=== PATIENT | female | born 1970 | race Caucasian/White ===

== ENCOUNTER 2023-01-23 23:12 | Emergency (ER) | payer MEDICAID ==
[~2023-01-23] VITALS: Ht 162.6 cm; Wt 83.1 kg
[2023-01-23 23:54] VITALS: TEMP 97.8; O2SAT 98
[2023-01-24] MEDS ORDERED: CLIN-194 MT (03:43)
[2023-01-24] MEDS ORDERED: IBUP-2029 MT (03:43)
[2023-01-24] MEDS ORDERED: CLINDAMYCIN HCL 150MG CAPSULE PO ONE (03:45)
[2023-01-24] MEDS ORDERED: IBUPROFEN 600MG TABLET PO ONE (03:45)
[2023-01-24 05:08] VITALS: BP 113/75; PULSE 78; RESP 16
== END 2023-01-24 05:17 | disposition home or self-care (01) ==
LOC: ER 23:12
DX: K04.7 Periapical abscess without sinus (principal); Z85.9 Personal history of malignant neoplasm, unspecified; Z88.0 Allergy status to penicillin
CPT/HCPCS: 99283

== ENCOUNTER 2024-01-29 06:40 | Emergency (ER) | payer MEDICAID ==
[~2024-01-29] VITALS: Ht 167.6 cm; Wt 70.0 kg
[~2024-01-29 06:40] MED LIST: CLIN-194 MT; IBUP-2029 MT
[2024-01-29 06:59] VITALS: BP 104/74; PULSE 108; RESP 16; TEMP 98; O2SAT 99
== END 2024-01-29 07:19 | disposition left against medical advice (07) ==
LOC: ER 06:40
DX: Z00.00 Encounter for general adult medical examination without abnormal findings (principal); Z53.21 Procedure and treatment not carried out due to patient leaving prior to being seen by health care provider

== ENCOUNTER 2024-10-13 22:55 | Emergency (ER) | payer MEDICAID ==
[~2024-10-13] VITALS: Ht 167.6 cm; Wt 167.6 kg
[2024-10-13 23:01] VITALS: O2SAT 98
[2024-10-13 23:57] LABS: BASOPHILS % 0.4 % (0.0-2.0); HEMOGLOBIN. 13.3 g/dL (12.0-16.0); LYMPHOCYTES % 46.5 % (20.0-50.0); MEAN CORPUSCULAR HEMOGLOBIN 30.7 pg (28.0-32.0); MEAN CORPUSCULAR HGB CONC 33.2 g/dL (31.0-37.0); MEAN CORPUSCULAR VOLUME 92.4 fL (81.0-99.0); MEAN PLATELET VOLUME 7.7 fl (7.4-10.4); MONOCYTES % 8.3 % (2.0-8.0); NEUTROPHILS % 43.8 % (40.0-76.0); PLATELET 220 x1000/uL (130-400); RED BLOOD CELL COUNT 4.33 mill/uL (4.2-5.4); RED CELL DISTRIBUTION WIDTH 12.8 % (11.6-14.6); WHITE BLOOD COUNT 6.1 x1000/uL (4.5-11.0)
[2024-10-14 00:03] LABS: CHLORIDE 104 mEq/L (98-107); POTASSIUM 3.3 mEq/L (3.5-5.1); SODIUM 140 mEq/L (136-145)
[2024-10-14 00:04] LABS: CARBON DIOXIDE 28 mEq/L (21-32)
[2024-10-14 00:05] LABS: CALCIUM 10.2 mg/dL (8.7-10.4)
[2024-10-14 00:07] LABS: HCG SCREEN NEGATIVE
[2024-10-14 00:09] LABS: CREATININE 0.8 mg/dL (0.6-1.0); ETHANOL BLOOD < 10 mg/dL (<10); GLUCOSE 118 mg/dL (70-105); UREA NITROGEN BLOOD 11 mg/dL (9-23)
[2024-10-14 00:11] LABS: ACETAMINOPHEN < 2 ug/mL (10-30); ALANINE AMINOTRANSFERASE 15 IU/L (10-49); ALBUMIN 4.6 g/dL (3.2-4.8); ASPARTATE AMINOTRANSFERASE 17 IU/L (<34); BILIRUBIN DIRECT < 0.1 mg/dL (<=3.0); BILIRUBIN TOTAL 0.5 mg/dL (0.1-1.0); PROTEIN TOTAL 7.1 g/dL (6.0-8.3)
[2024-10-14 03:54] LABS: CLARITY URINE CLEAR (CLEAR); COLOR URINE YELLOW (YELLOW); GLUCOSE URINE NEGATIVE (NEGATIVE); KETONES URINE NEGATIVE (NEGATIVE); LEUKOCYTE ESTERASE URINE NEGATIVE (NEGATIVE); NITRITE URINE NEGATIVE (NEGATIVE); OCCULT BLOOD URINE NEGATIVE (NEGATIVE); PH URINE 5.5 (4.5-8.0); PROTEIN URINE NEGATIVE (NEGATIVE); SPECIFIC GRAVITY URINE 1.015 (1.005-1.030); UROBILINOGEN URINE 0.2 E.U./dL (0.2-1.0)
[2024-10-14 04:03] LABS: *AMPHETAMINES SCREEN URINE PRESUMPTIVE POSITIVE (NEGATIVE); *BARBITURATES SCREEN URINE NEGATIVE (NEGATIVE); *BENZODIAZEPINES SCREEN URINE NEGATIVE (NEGATIVE); *COCAINE SCREEN URINE NEGATIVE (NEGATIVE); CANNABINOID URINE SCREEN NEGATIVE (NEGATIVE); ECSTASY MDMA SCREEN URINE NEGATIVE (NEGATIVE); METHADONE URINE SCREEN NEGATIVE (NEGATIVE); OPIATES URINE SCREEN NEGATIVE (NEGATIVE); PHENCYCLIDINE URINE SCREEN PRESUMTIVE POSITIVE (NEGATIVE)
[2024-10-14] MEDS ORDERED: METFORMIN HCL 500MG TABLET PO STA (05:36)
[2024-10-14] MEDS: POTASSIUM CHLORIDE 20MEQ/PACKET PO SCH (06:43)
[2024-10-14] MEDS: METFORMIN HCL 500MG TABLET PO SCH (08:00)
[2024-10-14 10:00] VITALS: BP 104/75; PULSE 72; RESP 16; TEMP 37.2; O2SAT 100
[2024-10-14] MEDS ORDERED: HYDROXYZINE 25MG TABLET PO PRN (12:00)
[2024-10-14] MEDS: SERTRALINE HCL 25MG TABLET PO SCH (13:00)
== END 2024-10-14 16:20 ==
LOC: ER 22:55
DX: R45.851 Suicidal ideations (principal); Z59.00 Homelessness unspecified; Z79.84 Long term (current) use of oral hypoglycemic drugs; Z85.43 Personal history of malignant neoplasm of ovary; Z88.0 Allergy status to penicillin; Z79.899 Other long term (current) drug therapy; Z20.822 Contact with and (suspected) exposure to COVID-19
CPT/HCPCS: 80076; 80048; 80307; 80329; 80320; 84703; 85025; 36415; 99285; 80305; 81003; 87426; Z7610; A4606; G0480